=== PATIENT | male | born 1970 | race Caucasian/White ===

== ENCOUNTER 2021-04-23 05:56 | Emergency (ER) | payer OTHER, SELFPAY ==
--- NOTE | ~2021-04-23 | XR_ITS ---
EXAMINATION: XR abdomen/kub 1V DATE: 04/23/2021 11:19 INDICATION: Left lower flank pain. TECHNIQUE: A supine view of the abdomen on 2 radiographs was obtained. COMPARISON: CT abdomen and pelvis 04/23/2021 FINDINGS: There are no dilated loops of bowel. There is a 2 mm stone in right kidney upper pole. Ther e is a phlebolith in right pelvis. There are two stones in distal left ureter with the larger measuri ng 5 x 3 mm. IMPRESSION: 1. Two stones in distal left ureter with the larger measuring 5 x 3 mm. 2. 2 mm right kidney stone. Reviewed, dictated and finalized at location A.
--- NOTE | ~2021-04-23 | CT_ITS ---
EXAMINATION: CT abdomen pelvis wo con DATE: 04/23/2021 06:37 INDICATION: Left lower abdominal pain and flank pain. TECHNIQUE: Computed tomography (CT) of the abdomen and pelvis was performed without intravenous contr ast. Automated exposure control and iterative reconstruction technique were employed. The dose-length product was 1623.37 mGy-cm. COMPARISON: 07/14/2017 FINDINGS: Unchanged small calcified nodules and 4 mm noncalcified nodule in the right lower lobe along with giovana cified right hilar lymph nodes consistent with old granulomatous disease. Discoid atelectasis in the right middle lobe. Heart size is normal. No pericardial or pleural effusion. Small sliding-type hiata l hernia. Liver, gallbladder, spleen, pancreas and bilateral adrenal glands are normal. 6 x 3 mm ston e or possibly pair of stones in the distal left ureter with mild left hydronephrosis. 1-2 mm nonobstr ucting stone in an upper pole calyx of the right kidney. There is mild colonic diverticulosis with a sigmoid predominance. There is minimal inflammatory stranding surrounding a larger diverticulum at th e sigmoid colon consistent with diverticulitis. Small bowel and appendix are normal. Mild fatty infil tration of the bladder wall. Prostatomegaly cases. No free intraperitoneal gas or fluid. No pathologi gisel enlarged abdominal or pelvic lymphadenopathy. Moderate thoracic and mild lumbar spondylosis. IMPRESSION: 1. Obstructing 6 x 3 mm stone or possibly pair of stones in the distal left ureter with mild left hyd ronephrosis. 2. Minimal inflammatory stranding surrounding a sigmoid diverticulum which could represent mild diver ticulitis. 3. Small sliding-type hiatal hernia. Reviewed, dictated and finalized at location A. IMPRESSION: 1. Obstructing 6 x 3 mm stone or possibly pair of stones in the distal left ure ter with mild left hydronephrosis. 2. Minimal inflammatory stranding surrounding a sigmoid diverticulum which coul d represent mild diverticulitis. 3. Small sliding-type hiatal hernia.
[2021-04-23 06:00] VITALS: BP 166/91; PULSE 66; RESP 22; O2SAT 99
[2021-04-23 06:19] LABS: Basophils Percent Auto 0.4 % (0.2-1.2); Eosinophils Absolute Auto 0.3 K/mm3 (0-0.3); Eosinophils Percent Auto 3.2 % (0-4.4); Hematocrit 45.6 % (42.0-52.0); Hemoglobin 14.9 g/dL (14.0-18.0); Immature Granulocyte Absolute 0.03 K/mm3 (0.00-0.031); Immature Granulocyte Percent A 0.3 % (0-0.5); Lymphocytes Absolute Auto 2.41 K/mm3 (0.9-3.2); Lymphocytes Percent Auto 25.3 % (18.3-44.2); Mean Corpuscular HGB Conc 32.7 g/dl (32-36); Mean Corpuscular Hemoglobin 28.4 pg (26-34); Mean Platelet Volume 9.3 fl (7.4-10.4); Monocytes Absolute Auto 0.8 K/mm3 (0.1-0.6); Monocytes Percent Auto 8.7 % (2.6-8.5); Neutrophils Absolute Auto 5.9 K/mm3 (1.3-6.7); Neutrophils Percent Auto 62.1 % (45.5-73.1); Platelet Count Result 345 k/mm3 (150-375); Red Blood Count 5.24 M/mm3 (4.6-6.20); Red Cell Distribution Width 13.1 % (11.5-14.5); White Blood Count 9.5 K/mm3 (4.5-10.0)
[2021-04-23] MEDS: SODIUM CHLORIDE 0.9% IV 1,000 ML 999 ML IV CONT (06:22)
[2021-04-23] MEDS: ONDANSETRON INJ 4 MG/2 ML VIAL IV PUSH (06:23)
[2021-04-23] MEDS: MORPHINE SULFATE (*CRX) 4 MG/ML INJ IV PUSH ×2 (06:23→09:44)
--- NOTE | 2021-04-23 06:25 | ED.GENADULT ---
HPI - General Adult General Chief complaint: Abdominal Pain <Vidal Cormier MD - Last Filed: 04/23/21 07:51> Stated complaint: abdominal pain <Vidal Cormier MD - Last Filed: 04/23/21 07:51> Time Seen by Provider: 04/23/21 06:08 <Vidal Cormier MD - Last Filed: 04/23/21 07:51> History of Present Illness HPI narrative: Patient is a 51-year-old gentleman who presents the emergency department with chief complaint of abdominal pain. Patient states the pain began this evening suddenly reports on his left flank radiating to his left lower quadrant and to his left groin area. Patient reports he is not able to get comfortable in any position states that its not improved by anything. Patient states this feels different whenever he had diverticulitis before in the past. The patient denies fever denies chills <Vidal Cormier MD - Last Filed: 04/23/21 07:51> Related Data Allergies/adverse reactions: Allergies Allergy/AdvReac Type Severity Reaction Status Date / Time NIDA Inhibitors AdvReac Mild cough Verified 11/10/20 15:42 <Vidal Cormier MD - Last Filed: 04/23/21 07:51> Review of Systems Review of Systems: Narrative: A 10 system review of systems was completed on the patient and is negative except for what is stated in the HPI. Nursing and ancillary documentation was reviewed. <Vidal Cormier MD - Last Filed: 04/23/21 07:51> [facility] Past Medical History Medical History: Medical History HTN (hypertension) <Vidal Cormier MD - Last Filed: 04/23/21 07:51> Family History Family History: Family History Mother Hypertension Father Family history of diabetes mellitus in first degree relative <Vidal Cormier MD - Last Filed: 04/23/21 07:51> Social History Social History: Social History Smoking packs per day: 0.5 Smoking cigarettes per day: 10.0 Years smoked: 7 Smoking pack-years: 3.50 Smoking status: Former smoker Tobacco type: cigarettes Second hand tobacco smoke exposure: No Alcohol intake: current Substance use: never Substance use type: does not use Gender identity (if verbalized by the patient): Male <Vidal Cormier MD - Last Filed: 04/23/21 07:51> Exam Narrative: Exam Narrative: GENERAL: Well-appearing, well-nourished, and in no acute distress. HEAD: Normocephalic, atraumatic. EYES: PERRLA and EOMI. ENT: Nares clear, no rhinorrhea or epistaxis. Mucous membranes moist. NECK: Supple. CHEST: Clear to auscultation. No respiratory distress. HEART: Regular rate and rhythm. No murmur heard. Normal peripheral pulses. ABDOMEN: Soft, nontender, nondistended, normal active bowel sounds. EXTREMITIES: Normal range of motion. No edema. SKIN: Warm, dry, no rash. NEURO: No focal deficits. Alert and oriented x3. PSYCH: Normal mood and affect. <Vidal Cormier MD - Last Filed: 04/23/21 07:51> Course Vital Signs Vital signs: Vital Signs Pulse Rate 66 04/23/21 06:00 Respiratory Rate 22 H 04/23/21 06:00 Blood Pressure 166/91 H 04/23/21 06:00 Pulse Oximetry 99 04/23/21 06:00 Pulse Rate 90 04/23/21 11:14 Respiratory Rate 18 04/23/21 11:14 Blood Pressure 143/98 H 04/23/21 11:14 Pulse Oximetry 98 04/23/21 11:14 <Vidal Cormier MD - Last Filed: 04/23/21 07:51> Vital Signs Pulse Rate 66 04/23/21 06:00 Respiratory Rate 22 H 04/23/21 06:00 Blood Pressure 166/91 H 04/23/21 06:00 Pulse Oximetry 99 04/23/21 06:00 Pulse Rate 90 04/23/21 11:14 Respiratory Rate 18 04/23/21 11:14 Blood Pressure 143/98 H 04/23/21 11:14 Pulse Oximetry 98 04/23/21 11:14 <Kate Pederson MD - Last Filed: 04/23/21 11:26> M
[2021-04-23 06:29] LABS: Anion Gap 10 mmol/L (8-16); Blood Urea Nitrogen 15 mg/dL (9-20); Calcium 9.7 mg/dL (8.4-10.2); Carbon Dioxide 26 mmol/L (22-30); Chloride 105 mmol/L (98-107); Estimated CRCL calculation 104 ml/min; Estimated Glomerular Filt Rate > 60; Glucose 142 mg/dL (75-110); Potassium 3.8 mmol/L (3.4-5.0); Sodium 141 mmol/L (137-145)
[2021-04-23 07:00] LABS: Alanine Aminotransferase 24 U/L (4-50); Albumin Level 4.1 g/dL (3.5-5.1); Alkaline Phosphatase 72 U/L (38-126); Aspartate Amino Transferase 27 U/L (17-59); Bilirubin,Total 0.4 mg/dL (0.2-1.3)
[2021-04-23 09:11] LABS: Appearance Urine Clear (Clear); Bilirubin Urine Negative (Negative); Blood Urine 3+ (Negative); Color Urine Yellow (Yellow); Glucose Urine UA Negative (Negative); Ketones Urine 1+ mg/dL (Negative); Leukocyte Esterase Ur Negative LEU/UL (Negative); Nitrate Urine Negative (Negative); Protein Urine Negative (Negative); Specific Grav Ur 1.025 (1.001-1.035); Urobilinogen Urine 0.2 mg/dL (<2.0); pH Urine 7.5 (5.0-9.0)
[2021-04-23 09:16] LABS: Add Urine Microscopic? NO
--- NOTE | 2021-04-23 09:40 | PC.NURSE ---
Pt resting on cart HOB elevated, completed 1L fluid bolus, reports L flank pain 2/10 comes and goes , denies N/V. Able to urinate ~300cc yellow urine it was the first time I could pee , denies hematuria
[2021-04-23 09:44] VITALS: BP 151/102; PULSE 94; RESP 18; O2SAT 96
--- NOTE | 2021-04-23 11:11 | PC.NURSE ---
Pt off floor to KUB
[2021-04-23 11:14] VITALS: BP 143/98; PULSE 90; RESP 18; O2SAT 98
[2021-04-23] MEDS: oxyCODONE/ACETAMINOPHEN (*CRX) 5-325 MG TABLET 1 TABLET PO (11:27)
== END 2021-04-23 11:40 | disposition home or self-care (01) ==
PROVIDERS: Emergency Medicine; Emergency Provider Emergency Medicine; PCP Family Medicine
DX: N13.2 Hydronephrosis with renal and ureteral calculous obstruction (principal); I10 Essential (primary) hypertension; Z87.891 Personal history of nicotine dependence; K44.9 Diaphragmatic hernia without obstruction or gangrene
CPT/HCPCS: 36415; 74018; 74176; 80048; 80076; 81003; 85025; 96361; 96374; 96375; 96376; 99284; A9270; J2270; J2405; J7030

== ENCOUNTER 2021-04-28 07:17 | Day surgery (SDC) | payer OTHER, SELFPAY ==
[2021-04-28] VITALS (10 sets, daily range): BP systolic 129–165; BP diastolic 82–103; PULSE 77–95; RESP 14–20; TEMP 36.2–36.3; O2SAT 95–99
--- NOTE | ~2021-04-28 | XR_ITS ---
EXAMINATION: XR retrograde pyelo w/stent LT DATE: 04/28/2021 15:24 INDICATION: Left internal ureteral stent placed TECHNIQUE: Fluoroscopic images from a left internal ureteral stent placement are submitted for review . 16 seconds of fluoroscopy time. 4 fluoroscopic images. FINDINGS: There is a left double-J internal ureteral stent projecting in expected position, with proximal [place] loop at the level of the renal pelvis and distal loop in the pelvis within the bladder lumen. IMPRESSION: 1. Left internal ureteral stent placement. Please refer to real-time procedural findings for detail s. Reviewed, dictated and finalized at location B. IMPRESSION: 1. Left internal ureteral stent placement. Please refer to real-time procedur al findings for details.
--- NOTE | ~2021-04-28 | XR_ITS ---
EXAMINATION: XR abdomen/kub 1V EXAM DATE: 04/28/2021 08:11 INDICATION: Left stone, severe left flank pain. TECHNIQUE: Frontal projection of the upper abdomen, frontal projection lower abdomen/pelvis for inter pretation. Comparison is made to prior examination from 04/23/2021. FINDINGS: Previously seen 2 left ureteral distal stones appear to have migrated to the ureterovesicul ar junction. This finding has been indicated, marked on the examination for review, clinical correlat ion. Nonobstructive bowel gas pattern. There is no organomegaly. There are mild bony degenerative shelbi nges. IMPRESSION: Left UVJ stones, larger 5 mm in size. Reviewed, dictated and finalized at location A.
--- NOTE | 2021-04-28 07:29 | PC.NURSE ---
was here 5 days ago for obstructing L side kidney stone (x2), was not able to f/u with urologist, has not passed stone, +hematuria and retention, +N/V. Pain worse last night
--- NOTE | 2021-04-28 07:43 | ED.MALEGU ---
HPI - Male Genitourinary General Chief complaint: Urogenital-Male Stated complaint: flank pain Time Seen by Provider: 04/28/21 07:21 History of Present Illness HPI Narrative: Patient is a 51-year-old male who presents ER with left-sided flank pain. Was seen last week and diagnosed with a 6 mm stone in the left distal ureter. Pain was intermittent over the weekend and nearly resolved yesterday. He contacted urology and did not hear back from the office. Pain returned today. It sharp. Its in his left low back radiating into his penis. Reports he has had hematuria without clots. No dysuria. No fevers or chills or sweats. He has had some nausea and vomiting. He has been trying to control his pain with Percocet at home. Related Data Allergies Allergy/AdvReac Type Severity Reaction Status Date / Time NIDA Inhibitors AdvReac Mild cough Verified 04/28/21 07:28 Review of Systems Review of Systems: All systems reviewed & are unremarkable except as noted in HPI and below Constitutional: Constitutional: Denies chills and Denies fever(s) ENT: Denies nasal congestion and Denies sore throat Cardiovascular: Cardiovascular: Denies chest pain Gastrointestinal: Gastrointestinal: Reports abdominal pain, Denies constipation, Denies diarrhea, Reports nausea and Reports vomiting Genitourinary: Genitourinary: Reports hematuria, Denies dysuria and Reports urinary frequency Musculoskeletal: Musculoskeletal: Reports back pain and Denies muscle cramps PMFSH Past Medical History Medical History (Updated 04/28/21 @ 09:28 by Leodan Watts MD) HTN (hypertension) Kidney stones Family History Family History Mother Hypertension Father Family history of diabetes mellitus in first degree relative Social History Social History Smoking packs per day: 0.5 Smoking cigarettes per day: 10.0 Years smoked: 7 Smoking pack-years: 3.50 Smoking status: Former smoker Tobacco type: cigarettes Second hand tobacco smoke exposure: No Alcohol intake: current Substance use: never Substance use type: does not use Gender identity (if verbalized by the patient): Male Exam Narrative: Exam Narrative: GENERAL: Uncomfortable-appearing, well-nourished, and in no acute distress. HEAD: Normocephalic, atraumatic. CHEST: Clear to auscultation. No respiratory distress. HEART: Regular rate and rhythm. Normal peripheral pulses. ABDOMEN: Soft, nontender, nondistended. EXTREMITIES: Normal range of motion. No edema. SKIN: Warm, dry, no rash. NEURO: Alert and oriented x3. PSYCH: Normal mood and affect. Course Course Emergency Course: Patient still hurting after morphine x2. Discussed with urology. We will plan to take the patient to the OR for stone retrieval. Okay to give patient Toradol at this time. Vital Signs Vital signs: Vital Signs Temperature 97.2 F L 04/28/21 07:25 Pulse Rate 80 04/28/21 07:25 Respiratory Rate 20 04/28/21 07:25 Blood Pressure 165/98 H 04/28/21 07:25 Pulse Oximetry 97 04/28/21 07:25 Temperature 97.2 F L 04/28/21 07:25 Pulse Rate 80 04/28/21 07:25 Respiratory Rate 20 04/28/21 07:25 Blood Pressure 165/98 H 04/28/21 07:25 Pulse Oximetry 97 04/28/21 07:25 MDM - Male Genitourinary Lab Data Result diagrams: 04/28/21 07:47 04/28/21 07:47 Labs: Lab Results 04/28/21 04/28/21 04/28/21 Range/Units 07:47 07:47 08:43 WBC 9.1 (4.5-10.0) K/mm3 RBC 5.00 (4.6-6.20) M/mm3 Hgb 14.4 (14.0-18.0) g/dL Hct 42.8 (42.0-52.0) % MCV 85.6 (80-100) fl MCH 28.8 (26-34) pg MCHC 33.6 (32-36) g/dl RDW 13.1 (11.5-14.5) % Plt Count 295 (150-375) k/mm3 MPV 9.2 (7.4-10.4) fl Immature Gran % (Auto) 0.3 (0-0.5) % Neut % (Auto) 76.1 H (45.5-73.1) % Lymph % (Auto) 13.7 L (18.3-44.2)
[2021-04-28] MEDS: SODIUM CHLORIDE 0.9% IV 1,000 ML 999 ML IV CONT (07:45)
[2021-04-28] MEDS: ONDANSETRON INJ 4 MG/2 ML VIAL IV PUSH (07:46)
[2021-04-28] MEDS: MORPHINE SULFATE (*CRX) 4 MG/ML INJ IV PUSH ×2 (07:46→08:24)
[2021-04-28 07:55] LABS: Basophils Percent Auto 0.4 % (0.2-1.2); Eosinophils Absolute Auto 0.2 K/mm3 (0-0.3); Eosinophils Percent Auto 1.9 % (0-4.4); Hematocrit 42.8 % (42.0-52.0); Hemoglobin 14.4 g/dL (14.0-18.0); Immature Granulocyte Absolute 0.03 K/mm3 (0.00-0.031); Immature Granulocyte Percent A 0.3 % (0-0.5); Lymphocytes Absolute Auto 1.25 K/mm3 (0.9-3.2); Lymphocytes Percent Auto 13.7 % (18.3-44.2); Mean Corpuscular HGB Conc 33.6 g/dl (32-36); Mean Corpuscular Hemoglobin 28.8 pg (26-34); Mean Corpuscular Volume 85.6 fl (80-100); Mean Platelet Volume 9.2 fl (7.4-10.4); Monocytes Absolute Auto 0.7 K/mm3 (0.1-0.6); Monocytes Percent Auto 7.6 % (2.6-8.5); Neutrophils Percent Auto 76.1 % (45.5-73.1); Platelet Count Result 295 k/mm3 (150-375); Red Cell Distribution Width 13.1 % (11.5-14.5); White Blood Count 9.1 K/mm3 (4.5-10.0)
[2021-04-28 08:04] LABS: Anion Gap 12 mmol/L (8-16); Blood Urea Nitrogen 17 mg/dL (9-20); Calcium 9.5 mg/dL (8.4-10.2); Carbon Dioxide 25 mmol/L (22-30); Chloride 103 mmol/L (98-107); Estimated CRCL calculation 104 ml/min; Estimated Glomerular Filt Rate > 60; Glucose 136 mg/dL (75-110); Sodium 140 mmol/L (137-145)
[2021-04-28 08:56] LABS: Add Urine Microscopic? YES; Appearance Urine Clear (Clear); Bilirubin Urine Negative (Negative); Blood Urine 3+ (Negative); Color Urine Straw (Yellow); Glucose Urine UA Negative (Negative); Ketones Urine 1+ mg/dL (Negative); Leukocyte Esterase Ur Negative LEU/UL (Negative); Mucus Urine Rare /lpf; Nitrate Urine Negative (Negative); Protein Urine Negative (Negative); Specific Grav Ur 1.013 (1.001-1.035); Urobilinogen Urine Negative mg/dL (<2.0); WBC Urine 0-3 /hpf
[2021-04-28] MEDS: KETOROLAC 30 MG/ML VIAL (*BKC) IV PUSH (09:43)
--- NOTE | 2021-04-28 10:00 | PC.NURSE ---
Pt resting on cart in position of comfort, states L flank pain 11/30, that antiinflammatory really helped . No active vomiting. Pt and at bedside updated on POC
--- NOTE | 2021-04-28 11:15 | PC.NURSE ---
Pt resting on cart, easily arousable, reports improved L flank pain 1/10, no active vomiting. Awaiting dispo
--- NOTE | 2021-04-28 13:44 | WPDANESEPPF ---
Anes - Initial Pre Proc Eval Procedure: Operation Date: 04/28/21 15:15 Proposed Procedures p Cystoscopy,Left Retrograde Pyelogram,Left Ureteroscopy,Left Stone Extraction,Possible Holmium Laser,Possible Stent Placement - Tc Jones MD Date/Time: 04/28/21 13:44 Surgeon: Tc Jones MD Pre Op Diagnosis: flank pain Patient Data Age: 51 Gender: M Height: 1.91 m Weight: 130.3 kg Last Vital Signs Temp 36.2 C L 04/28/21 07:25 Pulse 81 04/28/21 13:08 Resp 18 04/28/21 13:08 BP 142/93 H 04/28/21 13:08 Pulse Ox 96 04/28/21 13:08 Allergies Allergy/AdvReac Type Severity Reaction Status Date / Time NIDA Inhibitors AdvReac Mild cough Verified 04/28/21 07:28 Home Medications Medication Instructions Recorded Confirmed Type amlodipine 10 mg tablet 10 mg PO DAILY #30 tablet 11/10/20 11/10/20 Rx ondansetron 4 mg PO Q8H PRN 7 Days #20 tablet 04/23/21 Rx ondansetron HCl [Zofran] 4 mg PO Q8H #14 tablet 04/23/21 Rx oxycodone-acetaminophen [Percocet] 1 tablet PO Q6H PRN 3 Days #14 04/23/21 Rx tablet tamsulosin [Flomax] 0.4 mg PO DAILY #30 cap 04/23/21 Rx Laboratory Tests 04/28/21 04/28/21 04/28/21 07:47 07:47 08:43 WBC 9.1 K/mm3 K/mm3 (4.5-10.0) RBC 5.00 M/mm3 M/mm3 (4.6-6.20) Hgb 14.4 g/dL g/dL (14.0-18.0) Hct 42.8 % % (42.0-52.0) MCV 85.6 fl fl (80-100) MCH 28.8 pg pg (26-34) MCHC 33.6 g/dl g/dl (32-36) RDW 13.1 % % (11.5-14.5) Plt Count 295 k/mm3 k/mm3 (150-375) MPV 9.2 fl fl (7.4-10.4) Immature Gran % (Auto) 0.3 % % (0-0.5) Neut % (Auto) 76.1 % H % (45.5-73.1) Lymph % (Auto) 13.7 % L % (18.3-44.2) [place] % (Auto) 7.6 % % (2.6-8.5) Eos % (Auto) 1.9 % % (0-4.4) Baso % (Auto) 0.4 % % (0.2-1.2) Lymph # (Auto) 1.25 K/mm3 K/mm3 (0.9-3.2) [place] # (Auto) 0.7 K/mm3 H K/mm3 (0.1-0.6) Eos # (Auto) 0.2 K/mm3 K/mm3 (0-0.3) Baso # (Auto) 0.0 K/mm3 K/mm3 (0.0-0.1) Abs Immat Gran (auto) 0.03 K/mm3 K/mm3 (0.00-0.031) Absolute Neuts (auto) 7.0 K/mm3 H K/mm3 (1.3-6.7) Absolute Nucleated RBC 0.0 K/mm3 K/mm3 (0.0-0.012) Nucleated RBC % 0.0 % % (0.0-0.2) Sodium 140 mmol/L mmol/L (137-145) Potassium 4.0 mmol/L mmol/L (3.4-5.0) Chloride 103 mmol/L mmol/L (98-107) Carbon Dioxide 25 mmol/L mmol/L (22-30) Anion Gap 12 mmol/L mmol/L (8-16) BUN 17 mg/dL mg/dL (9-20) Creatinine 1.10 mg/dL mg/dL (0.7-1.3) Estim Creat Clear Calc 104 ml/min ml/min Estimated GFR > 60 (59 - ) Glucose 136 mg/dL H mg/dL (75-110) Calcium 9.5 mg/dL mg/dL (8.4-10.2) Urine Color Straw (Yellow) Urine Appearance Clear (Clear) Urine pH 7.0 (5.0-9.0) Ur Specific [place] 1.013 (1.001-1.035) Urine Protein Negative mg/dL mg/dL (Negative) Urine Glucose (UA) Negative mg/dL mg/dL (Negative) Urine Ketones 1+ mg/dL H mg/dL (Negative) Ur Blood (Man) 3+ H (Negative) Urine Nitrate Negative (Negative) Urine Bilirubin Negative (Negative) Urine Urobilinogen Negative mg/dL mg/dL (<2.0) Leukocyte Esterase Rfl Negative [place]/UL [place]/UL (Negative) Urine RBC 11-20 /hpf H /hpf (0-2) Urine WBC 0-3 /hpf /hpf Urine Mucus Rare /lpf /lpf Patient hx anesthesia problems: none Family hx anesthesia problems: none [facility] Past Medical History Medical History (Updated 04/28/21 @ 09:28 by Leodan Watts MD) HTN (hypertension) Kidney stones Family History Family History Mother Hypertension Father Family
--- NOTE | 2021-04-28 14:38 | PM.IMHP ---
H&P: HPI History of Present Illness Date/Time: 04/28/21 14:38 Patient is a pleasant 51-year-old male with a 2nd trip to the emergency room. Patient developed left flank pain. Patient is found have a 5 mm distal left ureteral calculus. His pain was poorly controlled as was is nausea and dry heaves. Given these findings he has opted proceed with definitive treatment of the stone. Chief Complaint: Left ureteral calculus Review of Systems Review of Systems: All systems reviewed & are unremarkable except as noted in HPI and below PMFSH Past Medical History Medical History HTN (hypertension) Kidney stones Family History Family History Mother Hypertension Father Family history of diabetes mellitus in first degree relative Social History Social History Smoking packs per day: 0.5 Smoking cigarettes per day: 10.0 Years smoked: 7 Smoking pack-years: 3.50 Smoking status: Former smoker Tobacco type: cigarettes Second hand tobacco smoke exposure: No Alcohol intake: current Substance use: never Substance use type: does not use Gender identity (if verbalized by the patient): Male Meds Home Medications and Allergies Home Medications Medication Instructions Recorded Confirmed Type amlodipine 10 mg tablet 10 mg PO DAILY #30 tablet 11/10/20 04/28/21 Rx ondansetron 4 mg PO Q8H PRN 7 Days #20 tablet 04/23/21 04/28/21 Rx ondansetron HCl [Zofran] 4 mg PO Q8H #14 tablet 04/23/21 04/28/21 Rx oxycodone-acetaminophen [Percocet] 1 tablet PO Q6H PRN 3 Days #14 04/23/21 04/28/21 Rx tablet tamsulosin [Flomax] 0.4 mg PO DAILY #30 cap 04/23/21 04/28/21 Rx Allergies Allergy/AdvReac Type Severity Reaction Status Date / Time NIDA Inhibitors AdvReac Mild cough Verified 04/28/21 13:52 Vital Signs Vital Signs - 24 hr 04/28/21 07:25 04/28/21 10:00 04/28/21 13:08 Temperature 36.2 C L Pulse Rate 80 93 81 Respiratory Rate 20 18 18 Blood Pressure 165/98 H 148/100 H 142/93 H Pulse Oximetry 97 95 96 04/28/21 13:55 Temperature 36.3 C L Pulse Rate 85 Respiratory Rate 18 Blood Pressure 155/93 H Pulse Oximetry 99 Exam Const: General: cooperative; No comfortable Eyes: General: appearance normal, both eyes and all related structures Chest: Chest palpation & inspection: normal inspection of the chest Resp: Effort & Inspection: normal respiratory effort Cardio: Rate: regular rate Rhythm: regular rhythm GI: GI Palp: Yes Soft to palpation H&P: Results Labs Labs: Short CBC 04/28/21 Range/Units 07:47 WBC 9.1 (4.5-10.0) K/mm3 Hgb 14.4 (14.0-18.0) g/dL Hct 42.8 (42.0-52.0) % Plt Count 295 (150-375) k/mm3 BMP 04/28/21 07:47 Sodium 140 Potassium 4.0 Chloride 103 Carbon Dioxide 25 BUN 17 Creatinine 1.10 Glucose 136 H Calcium 9.5 Urine 04/28/21 Range/Units 08:43 Urine Color Straw (Yellow) Urine Appearance Clear (Clear) Urine pH 7.0 (5.0-9.0) Ur Specific [place] 1.013 (1.001-1.035) Urine Protein Negative (Negative) mg/dL Urine Glucose (UA) Negative (Negative) mg/dL Assessment and Plan Assessment and plan (1) Calculus of ureterovesical junction (UVJ): Code(s): N20.1 - Calculus of ureter Status: Acute Assessment and Plan: Proceed with cystoscopy, left retrograde pyelogram, left ureteroscopy with stone extraction, possible holmium laser, stent placement.
--- NOTE | 2021-04-28 14:41 | WPDHPUPDATE1 ---
History and Physical Update Update Date/Time: 04/28/21 14:41 History and Physical has been reviewed, including an updated exam of the patient. There are NO changes in the patient's condition. Risks, benefits, and alternatives have been discussed and questions answered. Patient agrees to proceed with procedure. Proceed with cystoscopy, left retrograde pyelogram, left ureteroscopy with stone extraction, possible holmium laser and stent placement
[2021-04-28] MEDS: ceFAZolin 3 GM/D5W 100 ML 100 ML IVPB (14:51)
[2021-04-28] MEDS: LIDOCAINE HCL 2% GEL UROJET 10 ML PKG MUCOUS MEM (15:18)
--- NOTE | 2021-04-28 15:22 | W.PM.PROC2 ---
Procedure Note - Detailed Date of Procedure 04/28/21 Pre-op Diagnosis flank pain Post-op Diagnosis same Procedure Performed Cystoscopy, left retrograde pyelogram, left ureteroscopy with stone extraction x2, left stent placement 4.8 Georgian contour Surgeon Tc Jones MD Anesthesia general Findings Two distal ureteral calculi approximately 4 mm each Description of Procedure Patient is taken the operative suite and correctly identified. Once anesthesia was obtained was placed in dorsal lithotomy position and prepped draped usual sterile fashion. Twenty-two Georgian scope was inserted in the bladder direct vision. There is no tumors noted. Left ureteral orifice was cannulated with a guidewire. 8/10 dilator was used dilated the orifice. Rigid ureteral scope was then inserted. He had 2 stones distally. Using an escape basket we were able to treat both in their entirety. These are sent for analysis. Reinspection revealed no residual stones. Pyelogram was then performed to confirm placement of the stent. 4.8 Georgian contour stent was then placed with the proximal end in the lower pole the distal in the bladder. 2% viscous lidocaine was inserted urethra patient is taken recovery stable condition. He will be discharged home and follow up in about a week's time for stent removal. Drains Yes Packing No Pathology yes Complications No immediate complications Condition stable Disposition PACU
[2021-04-28] MEDS: LACTATED RINGERS 1,000 ML 30 ML IV CONT (15:27)
== END 2021-04-28 16:35 | disposition home or self-care (01) ==
LOC: ANHED 09:28 → ANHSURGERY 09:31
PROVIDERS: Emergency Provider Emergency Medicine; PCP Family Medicine; Visit Provider Urology
PROC: (CPT 52352; principal; 2021-04-28 15:15)
DX: N20.1 Calculus of ureter (principal); I10 Essential (primary) hypertension; Z87.891 Personal history of nicotine dependence; E66.9 Obesity, unspecified; Z68.35 Body mass index [BMI] 35.0-35.9, adult
CPT/HCPCS: 52332; 52352; 36415; 74018; 74420; 80048; 81001; 82365; 85025; 88300; 96361; 96374; 96375; 96376; 99285; A9270; C1769; C2617; J0690; J1100; J1885; J2250; J2270; J2405; J2704; J3010; J7030; J7120; Q9966

== ENCOUNTER 2023-01-04 13:18 | Emergency (ER) | payer OTHER, SELFPAY ==
--- NOTE | ~2023-01-04 | XR_ITS ---
EXAM: XR abdomen/kub 1V DATE: 01/04/2023 20:58 HISTORY: Right flank pain/ 2mm r uvj stone . COMPARISON: CT abdomen pelvis, same date; x-ray abdomen 04/28/2021. FINDINGS: Clear lung bases. Normal bowel gas pattern. No organomegaly. Pelvic phleboliths. Regional bones and soft tissues normal for age. IMPRESSION: The right renal and right UVJ stones are not radiographically visualized. Reviewed, dictated and finalized at location K. AN IMPRESSION: The right renal and right UVJ stones are not radiographically visua lized.
--- NOTE | ~2023-01-04 | CT_ITS ---
EXAMINATION: CT abdomen pelvis wo con DATE: 01/04/2023 19:35 INDICATION: R flank pain, diff urinating, Hx stones TECHNIQUE: Computed tomography (CT) of the abdomen and pelvis was performed without intravenous contr ast. Automated exposure control and iterative reconstruction technique were employed. The dose-length product was 890.00 mGy-cm. COMPARISON: 04/23/2021. FINDINGS: Lower thorax: Calcified and noncalcified pulmonary granulomas. Right middle lobe scar. Small hiatal h ernia. Liver: Normal. Biliary/Gallbladder: Gallbladder is normal. No bile duct dilation. Pancreas: No mass or duct dilation. Spleen: Normal. Adrenals:No mass. Kidneys: Perinephric stranding, greater on the right. Mild right ureterectasis. Nonobstructing 2 mm m idpole calcification. GI tract: No small or large bowel dilation. Short segment sigmoid wall thickening with pronounced div erticuli and mild surrounding inflammatory change. Multiple adjacent subcentimeter lymph nodes. These findings are unchanged. Normal appendix. Mesentery/Peritoneum: No ascites, mass, or free air. Retroperitoneum: No mass. Pelvis: 1 to 2 mm distal right UVJ stone. Fatty infiltration of the urinary bladder. Mild prostatomeg michael. Prostate calcifications. Soft Tissues: Soft tissues and body wall unremarkable. Bones: No acute osseous finding. IMPRESSION: Punctate, 1-2 mm stone lodged in the distal right UVJ causing mild obstructive uropathy. Chronic dive rticular inflammatory change in the sigmoid colon. Reviewed, dictated and finalized at location K. [facility] [employer] IMPRESSION: Punctate, 1-2 mm stone lodged in the distal right UVJ causing mild obstructive uropathy. 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
[2023-01-04 13:21] VITALS: BP 190/95; PULSE 84; RESP 18; TEMP 36.4; O2SAT 97
[2023-01-04 13:46] LABS: Alanine Aminotransferase 25 U/L (6-50); Albumin Level 4.6 g/dL (3.5-5.1); Alkaline Phosphatase 73 U/L (38-126); Anion Gap 8 mmol/L (8-16); Aspartate Amino Transferase 27 U/L (17-59); Bilirubin,Total 0.6 mg/dL (0.2-1.3); Blood Urea Nitrogen 17 mg/dL (9-20); Calcium 9.1 mg/dL (8.4-10.2); Carbon Dioxide 26 mmol/L (22-30); Chloride 103 mmol/L (98-107); Estimated CRCL calculation 100 ml/min; Estimated Glomerular Filt Rate > 60; Glucose 106 mg/dL (65-110); Potassium 3.9 mmol/L (3.4-5.0); Sodium 137 mmol/L (137-145)
[2023-01-04 13:48] LABS: Basophils Percent Auto 0.3 % (0.2-1.2); Eosinophils Percent Auto 0.2 % (0-4.4); Hematocrit 43.9 % (42.0-52.0); Hemoglobin 14.8 g/dL (14.0-18.0); Immature Granulocyte Absolute 0.04 K/mm3 (0.00-0.031); Immature Granulocyte Percent A 0.4 % (0-0.5); Lymphocytes Absolute Auto 1.75 K/mm3 (0.9-3.2); Lymphocytes Percent Auto 17.2 % (18.3-44.2); Mean Corpuscular HGB Conc 33.7 g/dl (32-36); Mean Corpuscular Hemoglobin 29.2 pg (26-34); Mean Corpuscular Volume 86.6 fl (80-100); Mean Platelet Volume 9.1 fl (7.4-10.4); Monocytes Absolute Auto 0.8 K/mm3 (0.1-0.6); Monocytes Percent Auto 7.4 % (2.6-8.5); Neutrophils Absolute Auto 7.6 K/mm3 (1.3-6.7); Neutrophils Percent Auto 74.5 % (45.5-73.1); Platelet Count Result 334 k/mm3 (150-375); Red Blood Count 5.07 M/mm3 (4.6-6.20); Red Cell Distribution Width 12.8 % (11.5-14.5); White Blood Count 10.2 K/mm3 (4.5-10.0)
[2023-01-04 17:15] VITALS: BP 165/106; PULSE 78; RESP 18; TEMP 36.7; O2SAT 97
--- NOTE | 2023-01-04 19:07 | ED.BACK ---
HPI - Back Pain/Injury General Chief Complaint: Back Pain/Injury Stated Complaint: right flank pain Time Seen by Provider: 01/04/23 18:55 Source: patient and old records reviewed Mode of arrival: ambulatory Limitations: no limitations History of Present Illness HPI Narrative: Patient is a 53-year-old male who presents to the ED with report of right flank pain. Patient reports he developed pain in his right flank region around 4 AM this morning which woke him up from his sleep. Pain was persistent throughout the day. The pain did radiate around to his right lower abdomen. He saw his primary care doctor as an outpatient and was scheduled to receive an outpatient CT scan of his abdomen pelvis. Pain became worse prior to receiving the scan, which prompted his presentation to the ED. Patient did also report having difficulty urinating, described as though he was only able to dribble small amounts out and unable to fully empty bladder, in addition to nausea and vomiting. Patient did urinate in the ED waiting room and reports his pain has been improved since then. Denies any significant pain or nausea currently. Denies fever, hematuria, diarrhea, constipation, testicular pain/swelling. Patient does have history of kidney stones in 2020, which felt similar. Related Data Allergies Allergy/AdvReac Type Severity Reaction Status Date / Time NIDA Inhibitors AdvReac Mild cough Verified 01/04/23 11:06 Review of Systems Review of Systems: CONSTITUTIONAL: Denies fever, chills, or sweats. CARDIOVASCULAR: Denies chest pain. RESPIRATORY: Denies dyspnea. GASTROINTESTINAL: See HPI. GENITOURINARY: See HPI. MUSCULOSKELETAL: See HPI. All systems reviewed & are unremarkable except as noted in HPI and below PMFSH Past Medical History Medical History Effusion, left knee HTN (hypertension) Kidney stones Family History Family History Mother Hypertension Pancreatic cancer Father Family history of diabetes mellitus in first degree relative Social History Social History Smoking packs per day: 0.5 Smoking cigarettes per day: 10.0 Years smoked: 7 Smoking pack-years: 3.50 Smoking status: Former smoker Tobacco type: cigarettes Second hand tobacco smoke exposure: No Alcohol intake: current Substance use: never Substance use type: does not use Living arrangements: with family Occupation/Education: occupation Additional occupation/education comments: [employer] Gender identity (if verbalized by the patient): Male Exam Narrative: GENERAL: Well appearing, obese, non-toxic, in no acute distress. HEAD: Normocephalic, atraumatic. NECK: Supple. No adenopathy, no masses. RESPIRATORY: Airway patent, respirations nonlabored. Clear to auscultation bilaterally, no rales, rhonchi, wheezing. CARDIOVASCULAR: Regular rate and rhythm without murmurs, rubs, or gallops. Peripheral pulses 2+ and equal bilaterally. ABDOMINAL: Soft, mild discomfort in right lower abdomen, nondistended, no hepatosplenomegaly. Normoactive BS. No significant CVA tenderness to percussion. MUSCULOSKELETAL: Moves all extremities. Strength/ROM intact without gross deformities. SKIN: Warm, dry, normal color. No rashes. NEURO: A&O X3. Speech clear. Cranial nerves II-XII grossly intact. Steady gait. No ataxic movements. PSYCHIATRIC: Appropriate mood and affect. Normal interaction. Course Vital Signs Vital signs: Vital Signs Temperature 97.6 F 01/04/23 13:21 Pulse Rate 84 01/04/23 13:21 Respiratory Rate 18 01/04/23 13:21 Blood Pressure 190/95 H 01/04/23 13:21 Pulse Oximetry 97 01/04/23 13:21 Oxygen Delivery Room Air 01/04/23 13:21 Temperature 98.1 F 01/04/23 17:15 Pulse Rate 76 01/04/23 19:09 Respiratory Rate 14 01/04/23 19:09 Blood Pressure 151/99 H 02
[2023-01-04 19:09] VITALS: BP 151/99; PULSE 76; RESP 14; O2SAT 99
[2023-01-04 19:25] LABS: Appearance Urine Clear (Clear); Bilirubin Urine Negative (Negative); Blood Urine 2+ (Negative); Color Urine Yellow (Yellow); Glucose Urine UA Negative (Negative); Ketones Urine 2+ mg/dL (Negative); Leukocyte Esterase Ur Negative LEU/UL (Negative); Nitrate Urine Negative (Negative); Protein Urine Negative (Negative); Specific Grav Ur 1.015 (1.001-1.035); Urobilinogen Urine 0.2 mg/dL (<2.0)
[2023-01-04 19:33] LABS: Mucus Urine Rare /lpf; Squamous Epithelial Cell Urine Rare /hpf (Few); WBC Urine 0-3 /hpf
[2023-01-04 19:41] LABS: Add Urine Microscopic? YES
== END 2023-01-04 21:00 | disposition home or self-care (01) ==
PROVIDERS: Emergency Medicine; Emergency Provider Physician Assistant; PCP Family Medicine
DX: N13.9 Obstructive and reflux uropathy, unspecified (principal); N20.1 Calculus of ureter; I10 Essential (primary) hypertension; Z87.442 Personal history of urinary calculi; Z87.891 Personal history of nicotine dependence
CPT/HCPCS: 36415; 74018; 74176; 80053; 81001; 85025; 87086; 99284

== ENCOUNTER 2024-05-18 01:43 | Day surgery (SDC) | payer OTHER, SELFPAY ==
[2024-05-02 13:56] VITALS: BMI 35.6
[2024-05-18 09:20] VITALS: BP 143/91; PULSE 83; RESP 18; TEMP 36.2; O2SAT 97
[2024-05-18] MEDS: LACTATED RINGERS 1,000 ML 150 ML IV CONT (09:29)
--- NOTE | 2024-05-18 09:30 | WPDANESEPPF ---
Anes - Initial Pre Proc Eval Procedure: Operation Date: 05/18/24 10:30 Proposed Procedures p Colonoscopy - Arturo Delgado MD Date/Time: 05/18/24 09:30 Surgeon: Arturo Delgado MD Pre Op Diagnosis: Personal HX colon polyps Patient Data Age: 54 Gender: M Height: 1.91 m Weight: 129 kg Last Vital Signs Temp 97.2 F L 05/18/24 09:20 Pulse 83 05/18/24 09:20 Resp 18 05/18/24 09:20 BP 143/91 H 05/18/24 09:20 Pulse Ox 97 05/18/24 09:20 O2 Del Method Room Air 05/18/24 09:20 Allergies Allergy/AdvReac Type Severity Reaction Status Date / Time NIDA Inhibitors AdvReac Mild cough Verified 05/18/24 09:19 Home Medications Medication Instructions Recorded Confirmed Type amlodipine 10 mg tablet 10 mg PO DAILY #90 tabs 03/30/24 05/18/24 Rx losartan 25 mg tablet 25 mg PO DAILY #90 tabs 04/30/24 05/18/24 Rx Patient hx anesthesia problems: none Family hx anesthesia problems: none Results Review: All pre-operative results and documents have been reviewed as part of the pre-operative evaluation. [facility] Past Medical History Medical History Effusion, left knee HTN (hypertension) Kidney stones Family History Family History Mother Hypertension Pancreatic cancer Father Family history of diabetes mellitus in first degree relative Social History Social History Social History: Smoking packs per day: 0.5 Smoking cigarettes per day: 10.0 Years smoked: 7 Smoking pack-years: 3.50 Smoking status: Former smoker Tobacco type: cigarettes Second hand tobacco smoke exposure: No Alcohol intake: current Drinks per week: 4 Substance use: never Substance use type: does not use Lack of Transportation: No Lack of Food: Never True Current Housing: I Have Housing Concerned About Future Housing: No Difficulty Paying Gas/Electric Bills: No Difficulty Paying for Meds: No Currently Unemployed: No Education: High School Diploma/GED Difficulty w/ Childcare or Family Care: No Living arrangements: with family Occupation/Education: occupation Additional occupation/education comments: [employer] Gender identity (if verbalized by the patient): Male Sexual Orientation (if Verbalized by the Patient): Straight or Heterosexual Spiritual care concerns: No Anes - Eval Final PreProcedure Day of Procedure 05/18/24 09:30 Patient weight: obese Heart: regular rate and rhythm Lungs: clear to auscultation Airway: Mallampati scale and special considerations (crowns in place, none loose. ) Neurological: alert and oriented Last oral intake: >/= 8 hours ASA classification: II Emergent: no Anesthetic plan: proceed Anesthesia type and monitoring: general GIVS and standard monitoring Results Review: All pre-operative results and documents have been reviewed as part of the pre-operative evaluation. HTN, JARRET on CPAP (mod per pt). Informed Consent: The patient's anesthetic plan and its attendant risks and benefits were discussed with the patient/family/POA. Questions were solicited and answers provided to the satisfaction of the patient/family/POA.
--- NOTE | 2024-05-18 09:58 | PM.HPGS ---
History of Present Illness History of Present Illness Consent: Risks, benefits, and alternatives have been discussed and questions answered. Patient agrees to proceed with procedure. Chief complaint: Personal HX colon polyps Narrative: Tremayne Peralta Jr. is a 54 year old male with colon polyps ~ 7 years ago Review of Systems Review of Systems: All systems reviewed & are unremarkable except as noted in HPI and below PMFSH Past Medical History Medical History (Updated 05/18/24 @ 09:59 by Arturo Delgado MD) Colon polyp Effusion, left knee HTN (hypertension) Kidney stones Family History Family History Mother Hypertension Pancreatic cancer Father Family history of diabetes mellitus in first degree relative Social History Social History Social History: Smoking packs per day: 0.5 Smoking cigarettes per day: 10.0 Years smoked: 7 Smoking pack-years: 3.50 Smoking status: Former smoker Tobacco type: cigarettes Second hand tobacco smoke exposure: No Alcohol intake: current Drinks per week: 4 Substance use: never Substance use type: does not use Lack of Transportation: No Lack of Food: Never True Current Housing: I Have Housing Concerned About Future Housing: No Difficulty Paying Gas/Electric Bills: No Difficulty Paying for Meds: No Currently Unemployed: No Education: High School Diploma/GED Difficulty w/ Childcare or Family Care: No Living arrangements: with family Occupation/Education: occupation Additional occupation/education comments: [employer] Gender identity (if verbalized by the patient): Male Sexual Orientation (if Verbalized by the Patient): Straight or Heterosexual Spiritual care concerns: No Meds Home Medications and Allergies Home Medications Medication Instructions Recorded Confirmed Type amlodipine 10 mg tablet 10 mg PO DAILY #90 tabs 03/30/24 05/18/24 Rx losartan 25 mg tablet 25 mg PO DAILY #90 tabs 04/30/24 05/18/24 Rx Allergies Allergy/AdvReac Type Severity Reaction Status Date / Time NIDA Inhibitors AdvReac Mild cough Verified 05/18/24 09:19 Vital Signs Vital Signs - 24 hr 05/18/24 09:20 Temperature 97.2 F L Pulse Rate 83 Respiratory Rate 18 Blood Pressure 143/91 H Pulse Oximetry 97 Oxygen Delivery Room Air Exam Const: General: comfortable and no acute distress HENMT: Face/Nose/Sinus: Normal nares present Eyes: General: appearance normal, both eyes and all related structures Neck: Neck: no JVD Resp: Auscultation: clear to auscultation bilaterally Cardio: Rate: regular rate Rhythm: regular rhythm GI: Inspection: non-distended GI Palp: Yes Soft to palpation Skin: General skin exam: normal color Neuro: General: gait normal Speech: normal speech Extrem: General: normal to inspection Psych: Mental Status: mental status grossly normal Assessment and Plan Assessment and plan (1) Colon polyp: Code(s): K63.5 - Polyp of colon Status: Acute Assessment and Plan: colonoscopy
[2024-05-18 10:09] VITALS: BP 117/79; PULSE 76; RESP 21; O2SAT 98
[2024-05-18 10:19] VITALS: BP 119/70; PULSE 73; RESP 21; O2SAT 97
[2024-05-18 10:29] VITALS: BP 115/85; PULSE 74; RESP 15; O2SAT 98
== END 2024-05-18 10:33 | disposition home or self-care (01) ==
PROVIDERS: PCP Family Medicine; Visit Provider Internal Medicine Gastroenterology
PROC: 0DJD8ZZ Inspection of Lower Intestinal Tract, Via Natural or Artificial Opening Endoscopic (ICD-10-PCS; CPT 45378; principal; 2024-05-18 10:30)
DX: Z12.11 Encounter for screening for malignant neoplasm of colon (principal); D12.3 Benign neoplasm of transverse colon; K57.30 Diverticulosis of large intestine without perforation or abscess without bleeding; K64.8 Other hemorrhoids; I10 Essential (primary) hypertension; Z87.891 Personal history of nicotine dependence
CPT/HCPCS: 45385; 88305; J2704; J7120